=== PATIENT | female | born 1945 ===

== ENCOUNTER 2017-08-25 08:53 | Day surgery (SDC) | payer MEDICARE, BC ==
[2017-08-24 08:54] VITALS: BMI 23.3
[~2017-08-25 08:53] MED LIST: LACTATED RINGERS 1,000 ML IV SCH
[2017-08-25 09:23] LABS: Glucose,Whole Blood 249 mg/dL (75-99)
[2017-08-25] MEDS ORDERED: LIDOCAINE 2% (PF) 20 MG/ML 10 ML AMP INHALATION ONE (09:25)
[2017-08-25] MEDS ORDERED: ATROPINE SULFATE 0.4 MG/ML 1 ML VIAL IM STA (09:25)
[2017-08-25 09:34] VITALS: RESP 18; TEMP 97.6
[2017-08-25] MEDS ORDERED: LIDOCAINE 1% 20 ML VIAL (10MG/ML) FOR IV START INTRADERMA ONE (09:35)
[2017-08-25] MEDS ORDERED: INSULIN ASPART 100 UNIT/ML 1 ML 10 ML VIAL SQ ONE ×2 (09:47→10:47)
[2017-08-25] MEDS ORDERED: LIDOCAINE 1% INJ 10MG/ML (20 ML MDV) ONE (10:02)
[2017-08-25] MEDS ORDERED: MIDAZOLAM 2 MG/2 ML VIAL ONE (10:02)
[2017-08-25] MEDS ORDERED: PROPOFOL 10 MG/ML 20 ML VIAL IV ONE (10:02)
[2017-08-25] MEDS ORDERED: fentaNYL (PF) 50 MCG/ML 2 ML AMP ONE (10:02)
[2017-08-25] MEDS ORDERED: LIDOCAINE 2% INJ 20 MG/ML INTRATRACH ONE (10:23)
[2017-08-25 10:39] LABS: Glucose,Whole Blood 275 mg/dL (75-99)
[2017-08-25 10:51] VITALS: BP 110/56; PULSE 88
--- NOTE | 2017-08-25 11:56 | PCN ---
PROCEDURE NOTE PROCEDURE: Bronchoscopy, airway examination, therapeutic lavage, BAL. We did a BAL of the right middle lobe, left lower lobe. 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 [employer] provided general anesthesia status unconscious sedation. After the patient was adequately sedated and being fully monitored, the bronchoscope was inserted through the right nostril. It passed through the right nasopharynx into the oropharynx. The hypopharynx was identified and topicalized. The hypopharyngeal structures including the anterior commissure, true cords, false cords, arytenoids, piriform sinuses, right and left vallecula and epiglottis all appeared normal. After topicalization, the bronchoscope was pushed through the glottic opening into the trachea. The trachea had normal configuration. Trachea yamileth was sharp. Right and left mainstem were topicalized. After topicalization, there was good evaluation of the right upper lobe and its 3 segments, right middle lobe in its 2 segments, right lower lobe and its 5 segments, left upper lobe proper and its 2 segments, lingula and its 2 segments and left lower lobe and its 4 segments. There were similar findings throughout. There was mild to moderate bronchitis. There was some mild erythema and hyperemia of the airways. There was some secretions noted. They are purulent looking. Not a lot. They were suctioned. The bronchoscope was then wedged into the right middle lobe. We did a BAL there. In addition, after that, the bronchoscope was wedged into the left lower lobe and the patient had a BAL in that area as well. Two specimens will be sent to the laboratory. The patient tolerated the procedure well. The bronchoscope was withdrawn and the patient will be recovered. MMODL / IJN: [id number] /
[2017-08-25 14:58] LABS: Appearance,BF Hazy; Color,BF Colorless; Nucleated Cells, Body Fluid 460 /uL; RBC, Body Fluid 120 /uL
[2017-08-25 15:02] LABS: Mononuclear WBC,Body Fluid 14 %; Polynuclear WBC,Body Fluid 86 %; Total Cells Counted,Body Fluid 100
[2017-08-25 15:13] LABS: Appearance,BF Hazy; Color,BF Colorless; Nucleated Cells, Body Fluid 15 /uL; RBC, Body Fluid 66 /uL
[2017-08-25 15:38] LABS: Mononuclear WBC,Body Fluid 35 %; Polynuclear WBC,Body Fluid 64 %; Total Cells Counted,Body Fluid 100
[2017-08-26] MEDS ORDERED: ALBUTEROL NEB (CONC) 2.5 MG/0.5 ML INHALATION ONE (05:00)
[2017-08-26] MEDS ORDERED: ATROPINE SULFATE 0.4 MG/ML 1 ML VIAL IM ONE (05:00)
[2017-08-26] MEDS ORDERED: LIDOCAINE 2% (PF) 20 MG/ML 2 ML AMP INHALATION ONE (05:00)
== END 2017-08-25 11:11 | disposition home or self-care (01) ==
LOC: ORWHC2ENDO 08:53
PROVIDERS: ATTEND Internal Medicine Critical Care Medicine
DX: J47.9 Bronchiectasis, uncomplicated (principal); A31.9 Mycobacterial infection, unspecified; E03.9 Hypothyroidism, unspecified; E10.22 Type 1 diabetes mellitus with diabetic chronic kidney disease; I12.9 Hypertensive chronic kidney disease with stage 1 through stage 4 chronic kidney disease, or unspecified chronic kidney disease; N18.3 Chronic kidney disease, stage 3 (moderate); F41.9 Anxiety disorder, unspecified; K21.9 Gastro-esophageal reflux disease without esophagitis; I48.91 Unspecified atrial fibrillation; D63.1 Anemia in chronic kidney disease; I25.10 Atherosclerotic heart disease of native coronary artery without angina pectoris; E78.2 Mixed hyperlipidemia; I25.2 Old myocardial infarction; Z79.4 Long term (current) use of insulin; Z79.82 Long term (current) use of aspirin; Z79.02 Long term (current) use of antithrombotics/antiplatelets; Z79.899 Other long term (current) drug therapy; Z96.60 Presence of unspecified orthopedic joint implant; Z87.01 Personal history of pneumonia (recurrent); Z87.891 Personal history of nicotine dependence; Z95.5 Presence of coronary angioplasty implant and graft; Z95.0 Presence of cardiac pacemaker; Z83.3 Family history of diabetes mellitus; Z82.49 Family history of ischemic heart disease and other diseases of the circulatory system
CPT/HCPCS: 94640; 87798 ×4; 87496; 87498; 87529 ×2; 88108; 88305; 89050; 87252; 87502; 87070; 87205; 87116; 87102; 87206; 31624; J2001 ×3; J2250; J0461; J3010; J2704